=== PATIENT | female | born 1965 | race Caucasian/White ===

== ENCOUNTER → 2021-09-26 | Outpatient (CLI) | payer MEDICAID, SELFPAY ==
[2021-09-26 18:31] LABS: Amphetamine Urine VISTA NEGATIVE (<1000 ng/mL); Barbiturate Urine VISTA NEGATIVE (< 200 ng/mL); Benzodiazepine Urine VISTA NEGATIVE (< 200 ng/mL); Cocaine Urine VISTA NEGATIVE (< 300 ng/mL); Ecstacy Urine VISTA NEGATIVE (< 500 ng/mL); Methadone Urine VISTA NEGATIVE (< 300 ng/mL); PCP Urine VISTA NEGATIVE (< 25 ng/mL); THC Urine VISTA NEGATIVE (< 50 ng/mL); Vista UDS pH Range 5
== END | disposition home or self-care (01) ==
PROVIDERS: PCP Internal Medicine; Referring Provider Anesthesiology Pain Medicine; Visit Provider Anesthesiology Pain Medicine
DX: F11.20 Opioid dependence, uncomplicated (principal)
CPT/HCPCS: 80307

== ENCOUNTER → 2022-11-08 | Outpatient (CLI) | payer MEDICARE, SELFPAY ==
--- NOTE | 2022-11-08 14:35 | RAD_ITS ---
STUDY: X-RAY - CERVICAL SPINE REASON FOR EXAM: Female, 57 years old. Postlaminectomy syndrome. TECHNIQUE: 3 view(s) of the cervical spine were obtained on 4 images. COMPARISON: None FINDINGS: Normal anterior atlantoaxial articulation. Normal odontoid process. Slight reversal of the normal lordotic curve. Anterior fusion at C5-6 with intervertebral disc fusion. Mild diffuse intervertebral disc space narrowing outside effusion. Diffuse mild uncovertebral and facet sclerosis. Bilateral carotid calcifications. RAD/Cerv Spine 2 or 3 Views IMPRESSION: Anterior fusion at C5-6 with intervertebral disc fusion. Diffuse mild cervical spondylosis. Carotid calcification. No acute abnormality or erosive changes. Electronically Signed: Ty Husain MD at 15:23 EDT ,
== END | disposition home or self-care (01) ==
LOC: RAD 14:16
PROVIDERS: PCP Internal Medicine; Referring Provider Anesthesiology Pain Medicine; Visit Provider Anesthesiology Pain Medicine
DX: M96.1 Postlaminectomy syndrome, not elsewhere classified (principal)
CPT/HCPCS: 72040

== ENCOUNTER 2023-11-02 13:07 | Day surgery (SDC) | payer MEDICARE, SELFPAY ==
[2023-11-02] VITALS (8 sets, daily range): BP systolic 109–123; BP diastolic 78–90; PULSE 58–77; RESP 16–20; TEMP 36.1–36.4; O2SAT 95–98; BMI 35.9
[2023-11-02] MEDS: Lidocaine 0.5%/Epi 1:200 (50ml 50 ML Vial INFILT (12:50)
[2023-11-02] MEDS: Lactated Ringers 1,000 ML 15 ML IV (13:34)
[2023-11-02] MEDS: Vancomycin HCl 1,500 MG in 0.9% Normal Saline (500mL Bag) 500 ML 250 MG IV (13:43)
--- NOTE | 2023-11-02 13:45 | PCM.PRE.AN2 ---
ASA Classification* ASA Classification ASA Classification: 3 Assessment & Plan Anesthesia* Anesthesia Assessment Anesthesia Assessment: Discussed sedation and/or anesthesia options, risks, benefits, and alternatives with patient/parents/legal guardian/POA. Questions invited. The patient/parents/legal guardian/POA seems to understand and agrees to proceed with anesthesia plan. Reviewed the physical assessment, medical history, allergy history and patient home medications list prior to surgery/procedure/anesthetic and documented any changes. Performed airway and anesthesia risk assessments. 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 When Was Last Pacemaker Check QUESTION #4 FULL TEXT: You/Your Family Experience fever (hyperthermia) with Anesthesia Last Oral Intake Last Oral intake: Last Oral Intake NPO since 08:00 11/02/23 13:30 Meds taken in AM with sips of Yes 11/02/23 13:30 water? Meds patient instructed to take am of surgery PONV PONV - technician plant and maintenance: PONV - technician plant and maintenance Female Yes 10/25/23 08:19 HX of Motion Sickness Yes 10/25/23 08:19 HX of N/V After Surgery No 10/25/23 08:19 Non-Smoker No 10/25/23 08:19 Duration of Surgery greater Yes 10/25/23 08:19 than 60 minutes Number of Risk Factors 3 10/25/23 08:19 PONV Score Moderate Risk 10/25/23 08:19 Height & Weight Height & Weight: Anesthesia: Height & Weight Height 5 ft 3 in 11/02/23 13:30 Weight: 92 kg 11/02/23 13:30 Body Mass Index (BMI) 35.9 11/02/23 13:30 Respiratory Assessment Respiratory Assessment - technician plant and maintenance: Respiratory Tract Infection Hx - technician plant and maintenance Hx Respiratory Tract Infection No 10/25/23 08:19 STOP Sleep Apnea STOP Sleep Apnea - technician plant and maintenance: STOP Sleep Apnea - technician plant and maintenance Hx Hypertension Yes: CONTROLLED WITH MED 10/25/23 08:19 Hx Sleep Apnea No 10/25/23 08:19 CPAP BIPAP Do you snore loudly (louder No 10/25/23 08:19 than talking or can be heard Do you often feel tired/ Yes 10/25/23 08:19 fatigued/ sleepy during daytime? Has anyone observed you stop No 10/25/23 08:19 breathing during sleep? STOP Results Positive 10/25/23 08:19 QUESTION #5 FULL TEXT : Do you snore loudly (louder than talking or can be heard through closed doors)? Tobacco Use History Tobacco Use History - technician plant and maintenance: Tobacco Use History - technician plant and maintenance Tobacco Use Smoking Status Current every day smoker 10/25/23 08:19 Hx Tobacco Use Yes 10/25/23 08:19 Years Smoking Packs Smoked per Day Smoking Cessation Date was within the last 15 years Hx Smoking Cessation Date Hx Smoking Cessation Counseling Hematologic Medial History Hematologic Hx - technician plant and maintenance: Hematologic Medical Hx - end stapler Hx of Blood Transfusion No 10/25/23 08:19 Hx of Transfusion in last 3 No 10/25/23 08:19 Months Date of Last Transfusion (if within last 3 months) Ever experience any problems No 10/25/23 08:19 with transfusion(s)? Specify any problems Hx of Preganancy in last 3 No 10/25/23 08:19 Months Nurse Filling Out Transfusion DSCHRIBER 10/25/23 08:19 & Questions: Date: 10/25/23 10/25/23 08:19 Time: 08:22 10/25/23 08:19 Patient unable to answer at this time (ie. confused, unrespo /Reproduction History /Reproductive History - technician plant and maintenance: /Reproductive Hx- technician plant and maintenance Hx Now No 10/25/23 08:19 Gestational Age (in weeks): EDC: Hx Hx Para Hx Section SAB No 10/25/23 08:19 Active Medications Active Medications: Current Medications Generic Name Dose Route Start Last Admin Trade Name Freq PRN Reason Stop Dose Admin Lactated Ringer's 1,000 mls @ 15 mls/hr 11/02/23 13:30 11/02/23 13:34 IV 15 mls/hr .Q48H DARRIN Administration Vancomycin HCl 1,500 mg/ 530 mls @ 250 mls/hr 11/02/23 13:30 11/02/23 13:43 Sodium Chloride IV 11/02/23 15:37 250 mls/hr PREOP ONE Administration PFSH Medical History Loss of hearing Wears glasses Depression Anxiety Diabetes Arthritis High cholesterol Easy bruising Neuropathy Back pain Migraine headache Injury of head and neck Stroke/cerebrovascular accident Syncope Hoarseness Dietary restriction History of IBS Gastric reflux Chronic sinusitis Smoker Shortness of breath on exertion Leg cramps History of pain when walking History of edema History of echocardiogram Hypertension Home Medications ?Medication ?Instructions ?Recorded ?Last Taken ?Type albuterol sulfate 90 mcg/actuation 1 puff inhalation Q4H PRN PRN 10/25/23 Unknown History aerosol inhaler shortness of breath or wheezing aspirin 81 mg chewable tablet 1 tab PO DAILY 10/25/23 10/26/23 History atorvastatin 40 mg tablet 40 mg PO QHS 10/25/23 Unknown History fluticasone propionate 50 2 spray intranasal DAILY 10/25/23 Unknown History mcg/actuation nasal spray,suspension furosemide 40 mg tablet 40 mg PO DAILY 10/25/23 Unknown History lisinopril 10 mg tablet 10 mg PO DAILY 10/25/23 11/02/23 History metformin 500 mg tablet,extended 250 mg PO QHS 10/25/23 Unknown History release 24 hr pantoprazole 40 mg tablet,delayed 40 mg PO DAILY 10/25/23 11/02/23 History release potassium chloride 10 mEq 10 meq PO DAILY 10/25/23 Unknown History tablet,extended release pregabalin 200 mg capsule 200 mg PO BID 10/25/23 11/02/23 History tizanidine 4 mg tablet 4 mg PO TID PRN PRN muscle 10/25/23 11/02/23 History spasticity trazodone 50 mg tablet 50 mg PO QHS 10/25/23 Unknown History venlafaxine 75 mg capsule,extended 75 mg PO QHS 10/25/23 11/01/23 History release 24 hr Allergy/AdvReac Type Severity Reaction Status Date / Time adhesive tape Allergy Intermediate Itching Verified 11/02/23 13:30 carisoprodol (From Soma) Allergy Intermediate Itching Verified 11/02/23 13:30 erythromycin base Allergy Intermediate Itching Verified 11/02/23 13:30 metaxalone (From Skelaxin) Allergy Intermediate Itching Verified 11/02/23 13:30 Penicillins Allergy Intermediate Hives Verified 11/02/23 13:30 morphine AdvReac Severe Nausea Verified 11/02/23 13:30 Surgical History History of lumbar laminectomy History of lumbar fusion Hx of thumb surgery History of carpal tunnel surgery of right wrist History of carpal tunnel surgery of left wrist Hx of fusion of cervical spine History of reversal of tubal ligation Hx of tubal ligation Hx of hysterectomy Hx of surgical procedure Social History Smoking Status: Current every day smoker tobacco type: cigarettes Review of Systems (Anesthesia) ROS Narrative System reviewed and no additional complaints, except as documented.
--- NOTE | 2023-11-02 15:10 | PCM.POST.ANE ---
Anesthesia: Postop Eval I Current Vital Signs Temperature: 97 F Pulse Rate: 77 Blood Pressure: 122/83 Respiratory Rate: 16 Pulse Ox: 97 Oxygen Delivery Method: Simple Mask Oxygen Flow Rate (L/min): 4 Assessment Airway patent: Yes Spontaneous unlabored respirations: Yes Mental status: Awake and Apprehensive nausea: No Vomiting: No Anesthesia Complication: No Fluid Hydration Crystalloid volume administer (ml): 900 Total IV fluid infused: 900 Progress Note Anesthesia document: Postop Eval 1 completed: Yes
[2023-11-02 15:18] LABS: Bedside Glucose 93 mg/dL (74-106)
--- NOTE | 2023-11-02 15:28 | PCM.POSTANE2 ---
Anesthesia Postop Eval I Sum Postop Eval Completion status Anesthesia document: Postop Eval 1 completed: Yes Anesthesia Postop Eval I Summary Anesthesia Postop Eval I Summary: Anesthesia Postop Eval I: Assessment Summary Airway patent Yes 11/02/23 15:23 [email or web address] Spontaneous unlabored Yes 11/02/23 15:23 [email or web address] respirations Mental status Awake,Apprehensive 11/02/23 15:23 [email or web address] nausea No 11/02/23 15:23 [email or web address] Vomiting No 11/02/23 15:23 [email or web address] Anesthesia Postop Eval I: Fluid Summary Crystalloid volume administer 900 11/02/23 15:23 [email or web address] (ml) Colloids volume administered ( ml) Blood Product volume administered (ml) Total IV fluid infused 900 11/02/23 15:23 [email or web address] Anesthesia Postop Eval I: Summary Notes Anesthesia Complication No 11/02/23 15:23 [email or web address] Anesthesia Complication Comment: Post-operative progress note Anesthesia: Postop Eval II Evaluation Mental status: Awake Pain Level: 0 nausea: No Vomiting: No
--- NOTE | 2023-11-02 16:40 | SUR.PHASEII ---
this nurse called basali's office to ask about antibiotic post op and pain medication for home. spoke to nurse at office. nurse to call patient with update.
== END 2023-11-02 16:41 | disposition home or self-care (01) ==
LOC: SDC 13:09 → AC 13:11
PROVIDERS: PCP Internal Medicine; Referring Provider Anesthesiology Pain Medicine; Visit Provider Anesthesiology Pain Medicine
PROC: (CPT 62362; principal; 2023-11-02 14:15)
DX: G89.4 Chronic pain syndrome (principal); E11.9 Type 2 diabetes mellitus without complications; M96.1 Postlaminectomy syndrome, not elsewhere classified; I10 Essential (primary) hypertension; E78.00 Pure hypercholesterolemia, unspecified; F32.A Depression, unspecified; F41.9 Anxiety disorder, unspecified; F17.210 Nicotine dependence, cigarettes, uncomplicated; Z79.82 Long term (current) use of aspirin; Z79.84 Long term (current) use of oral hypoglycemic drugs; Z79.899 Other long term (current) drug therapy
CPT/HCPCS: 62362; 82962; J7040; J7120

== ENCOUNTER 2023-11-04 13:03 | Emergency (ER) | payer MEDICARE, SELFPAY ==
[2023-11-04 13:06] VITALS: BP 124/93; PULSE 82; RESP 18; TEMP 36.2; O2SAT 95
--- NOTE | 2023-11-04 13:22 | CT_ITS ---
STUDY: CT Abdomen And Pelvis W/ Contrast Injection 11/04/2023 2:46 PM REASON FOR EXAM: Female, 58 years old. pain pump replaced sunday TECHNIQUE: Transaxial images were obtained without oral contrast, and with IV 100mL Isovue-370 intravenous contrast. Individualized dose optimization techniques were used for this CT. COMPARISON: None FINDINGS: The visualized lung bases are unremarkable. The visualized portions of the heart are within normal limits. Unremarkable liver. Unremarkable gallbladder and extrahepatic biliary system. Unremarkable spleen. Unremarkable pancreas. 24 mm mass in the left adrenal gland. This is 42 Hounsfield units. This is indeterminate. No acute findings of the right kidney. No acute findings of the left kidney. Unremarkable visualized stomach. Unremarkable small intestine. There are multiple colonic diverticula consistent with diverticulosis. The appendix is visualized and appears unremarkable. There are calcifications of the abdominal aorta. This is consistent for atherosclerotic disease. There is no abdominal aortic aneurysm. Unremarkable inferior vena cava. Subcentimeter mesenteric lymph nodes. Unremarkable urinary bladder. There is absence of the uterus consistent with a prior hysterectomy. There is an umbilical hernia containing fat. There are diffuse degenerative changes of the visualized lumbar spine. There is a Grade 1 anterolisthesis of L4 on L5. Lumbar spinal fixation hardware. Right lower quadrant electronic device noted. Soft tissue air overlying the electronic device suggesting recent placement. No drainable abscess. CT/Abdomen/Pelvis W IV Cont ONLY IMPRESSION: (NOT LISTED IN ORDER OF SIGNIFICANCE) Left adrenal mass. ACR White Paper guidelines (Elijah et al. JACR 2017; 14(8):3668-0306) suggest a low dose, non-contrast adrenal CT or chemical-shift adrenal MRI follow-up study. Right lower quadrant electronic device noted. Soft tissue air overlying the electronic device suggesting recent placement. No drainable abscess. Other findings as above. Electronically Signed: Aydin Silvestre MD at 14:50 EDT ,
--- NOTE | 2023-11-04 13:22 | EKG12_ITS ---
Test Reason : Blood Pressure : / mmHG Vent. Rate : 062 BPM Atrial Rate : 062 BPM P-R Int : 146 ms QRS Dur : 100 ms QT Int : 416 ms P-R-T Axes : -04 -45 -17 degrees QTc Int : 422 ms Normal sinus rhythm Incomplete right bundle branch block Left anterior fascicular block Nonspecific T wave abnormality Abnormal ECG Confirmed by TAYLER ARRIETA, ABHIJIT ([id number]), photography editor JAQUI QUINONES ([id number]) on 11/09/2023 6:45:46 AM Referred By: Confirmed By:MADAN LESTER MD
--- NOTE | 2023-11-04 13:25 | EX.ED.DYSGE1 ---
HPI History of Present Illness Chief Complaint: General Illness Narrative Narrative: Patient is a 58-year-old female with past medical history anxiety, depression, diabetes, neuropathy, previous CVA, migraine headaches, hypertension who presents to the emergency department with chief complaint of confusion since Sunday when she had her pain pump replaced. Patient states that she went home on Sunday and noted that she went to bed and feels like she has been confused ever since and been very weak. Patient denies any recent sick contacts. Patient states that she has had chills but denies any fevers. Patient states that her family advised her to come here for further evaluation management. [facility] Medical History Loss of hearing Wears glasses Depression Anxiety Diabetes Arthritis High cholesterol Easy bruising Neuropathy Back pain Migraine headache Injury of head and neck Stroke/cerebrovascular accident Syncope Hoarseness Dietary restriction History of IBS Gastric reflux Chronic sinusitis Smoker Shortness of breath on exertion Leg cramps History of pain when walking History of edema History of echocardiogram Hypertension Home Medications ?Medication ?Instructions ?Recorded ?Last Taken ?Type albuterol sulfate 90 mcg/actuation 1 puff inhalation Q4H PRN PRN 10/25/23 Unknown History aerosol inhaler shortness of breath or wheezing aspirin 81 mg chewable tablet 1 tab PO DAILY 10/25/23 10/26/23 History atorvastatin 40 mg tablet 40 mg PO QHS 10/25/23 Unknown History fluticasone propionate 50 2 spray intranasal DAILY 10/25/23 Unknown History mcg/actuation nasal spray,suspension furosemide 40 mg tablet 40 mg PO DAILY 10/25/23 Unknown History lisinopril 10 mg tablet 10 mg PO DAILY 10/25/23 11/02/23 History metformin 500 mg tablet,extended 250 mg PO QHS 10/25/23 Unknown History release 24 hr pantoprazole 40 mg tablet,delayed 40 mg PO DAILY 10/25/23 11/02/23 History release potassium chloride 10 mEq 10 meq PO DAILY 10/25/23 Unknown History tablet,extended release pregabalin 200 mg capsule 200 mg PO BID 10/25/23 11/02/23 History tizanidine 4 mg tablet 4 mg PO TID PRN PRN muscle 10/25/23 11/02/23 History spasticity trazodone 50 mg tablet 50 mg PO QHS 10/25/23 Unknown History venlafaxine 75 mg capsule,extended 75 mg PO QHS 10/25/23 11/01/23 History release 24 hr Allergy/AdvReac Type Severity Reaction Status Date / Time adhesive tape Allergy Intermediate Itching Verified 11/04/23 13:05 carisoprodol (From Soma) Allergy Intermediate Itching Verified 11/04/23 13:05 erythromycin base Allergy Intermediate Itching Verified 11/04/23 13:05 metaxalone (From Skelaxin) Allergy Intermediate Itching Verified 11/04/23 13:05 Penicillins Allergy Intermediate Hives Verified 11/04/23 13:05 morphine AdvReac Severe Nausea Verified 11/04/23 13:05 Surgical History History of lumbar laminectomy History of lumbar fusion Hx of thumb surgery History of carpal tunnel surgery of right wrist History of carpal tunnel surgery of left wrist Hx of fusion of cervical spine History of reversal of tubal ligation Hx of tubal ligation Hx of hysterectomy Hx of surgical procedure Social History Smoking Status: Current every day smoker tobacco type: cigarettes ROS ROS ED ROS Narrative Constitutional: Complains of chills denies any fevers denies headaches, lightness, dizziness Eyes: Denies change in vision double vision blurry vision Cardiovascular: Denies chest pain or palpitations Respiratory: Denies coughing wheezing shortness of breath Abdomen: Denies any abdominal pain admits to some nausea denies vomiting or diarrhea : Denies any urinary symptoms Neurological: States that she has chronic numbness tingling in the left side from her previous stroke denies any new numbness or tingling complains of confusion as noted in HPI Musculoskeletal: Complains of back pain Skin: Denies any new rashes or lesions EXAM Physical Exam Narrative Exam Narrative: General: Patient was lying in bed rest comfortably did not appear to be in acute distress Head: Atraumatic, normocephalic Eyes: PERRL bilaterally, EOMI bilateral, no conjunctival injection noted Neck: Soft, supple, trachea midline Cardiovascular: Regular rate and rhythm no murmurs gallops rubs noted Respiratory: Clear to auscultation bilaterally no rales rhonchi wheeze noted Abdomen: Soft, nondistended, nontender to palpation, bowel sounds present x 4, patient's surgical incision in the right lateral aspect of her flank region appears to be healing well no surrounding erythema or purulent discharge noted Steri-Strips in place Musculoskeletal: No midline tenderness palpation thoracolumbar spine Extremities: +4/5 strength noted in the bilateral upper and lower extremities, DP pulses +2/4 in the bilateral extremities, no pedal edema no exam Neurological: Patient was following commands knew that she was at [facility] the year is 2023 and we are in summer. Patient has sensation grossly intact in the bilateral lower extremities and states that she has chronic sensory changes in her left lower extremity from her previous stroke this is not new Skin: See abdomen Const Vital Signs: 11/04/23 13:06 11/04/23 13:18 11/04/23 15:04 Temperature 97.1 F L Temperature Source Temporal Pulse Rate 82 51 L Respiratory Rate 18 Respiratory Effort Normal Non-Labored Blood Pressure 124/93 H 163/99 H Blood Pressure Mean 103 120 Pulse Ox 95 Oxygen Delivery Method Room Air MDM MDM MDM Narrative Medical decision making narrative: Patient is a 58-year-old female who presented to the emergency department with chief complaint of confusion after her pain pump replaced on Sunday. Patient will have a workup performed here on the differential diagnose includes but not limited to COVID-19, intra-abdominal abscess, too much narcotic delivered via pain pump. Once work up is obtained and reviewed she will be reevaluated Patient is CBC reviewed white blood cell count 11,000, hemoglobin stable 14.7, plate count normal at 284. Patient sodium normal 142, potassium was 3.4, creatinine normal at 0.75. Patient's AST and ALT were 916 respectively, troponin normal at 5. Patient's EKG reviewed and showed sinus rhythm rate of 62 bpm. Patient lipase normal at 22, urinalysis reviewed and showed negative nitrates negative leukocyte esterase no white blood cells noted, no bacteria noted. Patient's CT abdomen pelvis with IV contrast was reviewed and showed right lower quadrant electronic device noted. Soft tissue air overlying the electronic device suggesting recent placement which was just placed on Sunday as noted above. No drainable abscess noted. Patient tested negative for COVID flu and RSV. On reevaluation of the patient she would like to go home at this point in time. Patient was encouraged to follow-up with her surgeon and her primary care physician outpatient setting. She was encouraged return with worsening symptoms or concerns. All question concerns answered she was discharged home in stable condition. Lab Data Labs: Laboratory Results - last 24 hr 11/04/23 11/04/23 13:30 15:00 WBC 11.9 H RBC 4.89 Hgb 14.7 Hct 44.8 MCV 91.6 MCH 30.1 MCHC 32.8 RDW Std Deviation 49.2 H RDW Coeff of Tavo 14.6 Plt Count 284 MPV 9.7 Immature Gran % (Auto) 0.300 Neut % (Auto) 77.8 H Lymph % (Auto) 14.0 L [place] % (Auto) 7.4 Eos % (Auto) 0.0 Baso % (Auto) 0.5 Absolute Neuts (auto) 9.3 H Absolute Lymphs (auto) 1.67 Nucleated RBC % 0 Sodium 142 Potassium 3.4 L Chloride 110 H Carbon Dioxide 24.0 Anion Gap 8 BUN 9 Creatinine 0.75 Est GFR (MDRD) Af Amer 103 Est GFR (MDRD) Non-Af 85 BUN/Creatinine Ratio 12.0 Glucose 109 H Calcium 9.1 Total Bilirubin 0.70 AST 9 L ALT 16 Alkaline Phosphatase 98 Troponin I High Sens 5 Total Protein 7.2 Albumin 3.5 Globulin 3.7 Albumin/Globulin Ratio 0.9 Lipase 22 Urine Color Yellow Urine Clarity Clear Urine pH 6.5 Ur Specific [place] 1.010 Urine Protein 15 H Urine Glucose (UA) Normal Urine Ketones 5 H Urine Occult Blood 10 H Urine Nitrite Negative Urine Bilirubin Negative Urine Urobilinogen 4 H Ur Leukocyte Esterase Negative Urine RBC 0 SEEN Urine WBC 0 SEEN Ur Squamous Epith Cells 0-5 SEEN Urine Bacteria 0 SEEN Urine Mucus 0 SEEN Radiography Diagnostic Testing: Clinical Impression(s) from Imaging Studies Abdomen/Pelvis CT 11/04/23 13:22 IMPRESSION: (NOT LISTED IN ORDER OF SIGNIFICANCE) Left adrenal mass. ACR White Paper guidelines (Elijah et al. JACR 2017; 14(8):4202-0870) suggest a low dose, non-contrast adrenal CT or chemical-shift adrenal MRI follow-up study. Right lower quadrant electronic device noted. Soft tissue air overlying the electronic device suggesting recent placement. No drainable abscess. Other findings as above. Electronically Signed: Aydin Silvestre MD at 14:50 EDT , Discharge Plan Triage Chief Complaint: General Illness ED Provider: Dominic Dunn Dx/Rx/DC Orders Clinical Impression: Fatigue Prescriptions: No Action furosemide 40 mg tablet 40 mg PO DAILY Patient Comments: TAKE 1 TABLET BY MOUTH DAILY metformin 500 mg tablet extended release 24 hr 250 mg PO QHS Patient Comments: TAKE 1/2 (ONE-HALF) OF A TABLET BY MOUTH ONCE DAILY trazodone 50 mg tablet 50 mg PO QHS Patient Comments: TAKE 1 TABLET BY MOUTH DAILY AT BEDTIME lisinopril 10 mg tablet 10 mg PO DAILY Patient Comments: TAKE 1 TABLET BY MOUTH AT BEDTIME pantoprazole 40 mg tablet,delayed release (DR/EC) 40 mg PO DAILY Patient Comments: TAKE 1 TABLET BY MOUTH DAILY pregabalin 200 mg capsule 200 mg PO BID Patient Comments: TAKE 1 CAPSULE BY MOUTH TWICE DAILY FOR 30 DAYS aspirin 81 mg tablet,chewable 1 tab PO DAILY Patient Comments: TAKE 1 TABLET BY MOUTH DAILY potassium chloride 10 mEq tablet extended release 10 meq PO DAILY Patient Comments: TAKE 1 TABLET BY MOUTH DAILY atorvastatin 40 mg tablet 40 mg PO QHS Patient Comments: TAKE 1 TABLET BY MOUTH ONCE DAILY albuterol sulfate 90 mcg/actuation HFA aerosol inhaler 1 puff INHALATION Q4H PRN PRN (Reason: shortness of breath or wheezing) Patient Comments: INHALE 2 PUFFS EVERY 4 HOURS NEEDED venlafaxine 75 mg capsule,extended release 24hr 75 mg PO QHS Patient Comments: TAKE 1 CAPSULE BY MOUTH TWICE DAILY tizanidine 4 mg tablet 4 mg PO TID PRN PRN (Reason: muscle spasticity) Patient Comments: TAKE 1 TABLET BY MOUTH EVERY 8 HOURS NEEDED fluticasone propionate 50 mcg/actuation spray,suspension 2 spray INTRANASAL DAILY Patient Comments: Take 2 Sprays intranasally once per Day for 30 Days Primary Care Provider: Ricki Roberts Referrals: Ricki Roberts MD [Primary Care Provider] - Activity Restrictions/Additional Instructions: Follow-up with your primary care physician and your surgeon in the outpatient setting. Return with worsening symptoms or any other concerns. Print Language: Indonesian Disposition Disposition: Home, Self Care
[2023-11-04] MEDS: 0.9% Normal Saline (1000mL) 1,000 ML 999 ML IV (13:27)
--- NOTE | 2023-11-04 13:28 | ED.RN ---
NO OLD EKGS
[2023-11-04 13:40] LABS: Absolute Lymphocyte Count 1.67 X10^3/uL (0.83-4.51); Absolute Neutrophil Count 9.3 X10^3/uL (2.0-7.7); Basophil# 0.06 X10^3/uL; Basophil% 0.5 % (0-1); Hematocrit 44.8 % (37-47); Hemoglobin 14.7 g/dL (12.0-15.0); Lymphocyte # 1.67 X10^3/ul (0.83-4.51); Mean Corp Hgb Conc 32.8 g/dL (32-36); Mean Corpuscular Hgb 30.1 pg (27.0-32.0); Mean Corpuscular Volume 91.6 fL (81-99); Mean Platelet Vol. 9.7 fl (6.2-12.0); Monocyte# 0.88 X10^3/uL; Monocyte% 7.4 % (0-10); NRBC Flagged by Analyzer 0 % (0-5); Neutrophil # 9.25 X10^3/uL (2.7-7.7); Neutrophil % 77.8 % (47-70); Platelet Count 284 K/mm3 (150-450); RBC Distribution Width CV 14.6 % (11.6-14.6); RBC Distribution Width SD 49.2 fl (35.1-43.9); Red Blood Count 4.89 M/mm3 (4.2-5.4); White Blood Count 11.9 K/mm3 (4.4-11.0)
[2023-11-04 14:01] LABS: ALB/GLOB Ratio 0.9 RATIO (0.9-2.4); AST(SGOT) 9 U/L (15-37); Alanine Aminotransfer ALT/SGPT 16 U/L (13-56); Albumin, Serum 3.5 g/dL (3.2-5.0); Alkaline Phosphatase 98 U/L (45-117); Anion Gap 8 (5-15); BUN 9 mg/dL (7-18); Calcium,Total 9.1 mg/dL (8.5-10.1); Chloride 110 mmol/L (98-107); Creatinine, Serum 0.75 mg/dL (0.55-1.02); EST Glomerular Filtration Rate 85 mL/min (>60); Est Glom Filt Rate - Afr Amer 103 mL/min (>60); Globulin 3.7 g/dL (2.2-4.2); Glucose 109 mg/dL (74-106); Lipase 22 U/L (13-75); Potassium 3.4 mmol/L (3.5-5.1); Protein, Total 7.2 g/dL (6.4-8.2); Sodium Level 142 mmol/L (136-145); Troponin-I HS 5 pg/mL (3.0-54.0)
[2023-11-04 15:04] VITALS: BP 163/99; PULSE 51
[2023-11-04 15:06] LABS: Bacteria 0 SEEN /hpf (None Seen); Mucous, Urine 0 SEEN /hpf (<or=2+); Red Blood Cells-Urine 0 SEEN /hpf (0-5); White Blood Cells 0 SEEN /hpf (0-5)
[2023-11-04 15:07] LABS: Color, Urine Yellow (Yellow); Glucose, Dipstick Normal (Normal); Ketone-Dipstick 5 mg/dl (Negative); Leukocyte Esterase-Dipstick Negative /ul (Negative); Nitrite-Dipstick Negative (Negative); Occult Blood-Urine 10 /ul (Negative); Protein-Dipstick 15 mg/dl (Negative); Urine Bilirubin Dipstick Negative (Negative); Urine Clarity Clear (Clear); Urine Urobilinogen 4 mg/dl (Normal); Urine pH 6.5 (5.0 - 8.0)
--- NOTE | 2023-11-04 15:07 | ED.RN ---
On getting patient to ambulate to restroom for urine sample, this nurse observed IV fluids to be off patient. When questioning patient, she stated that the IV had been d/c in CT scan d/r infiltration. This nurse was not immediately advised d/t busy department at time and this nurse along w/ orientee in w/ stroke alert patient. Documentation was completed and quantros was added.
[2023-11-04 15:14] LABS: Squamous Epithelial Cells - UA 0-5 SEEN /hpf (5-10)
[2023-11-04 16:17] VITALS: BP 158/94; PULSE 65; RESP 16; TEMP 37.2; O2SAT 100
== END 2023-11-04 16:18 | disposition home or self-care (01) ==
PROVIDERS: Emergency Provider Emergency Medicine; PCP Internal Medicine; Visit Provider Emergency Medicine
DX: R53.83 Other fatigue (principal); E11.9 Type 2 diabetes mellitus without complications; I10 Essential (primary) hypertension; F17.210 Nicotine dependence, cigarettes, uncomplicated; E78.00 Pure hypercholesterolemia, unspecified; Z79.82 Long term (current) use of aspirin; Z79.899 Other long term (current) drug therapy; Z79.84 Long term (current) use of oral hypoglycemic drugs; K21.9 Gastro-esophageal reflux disease without esophagitis; Z98.51 Tubal ligation status; Z90.710 Acquired absence of both cervix and uterus; I69.398 Other sequelae of cerebral infarction
CPT/HCPCS: 74177; 80053; 81001; 83690; 84484; 85025; 87631; 93005; 96360; 99282; J7030; Q9967; A4216